=== PATIENT | male | born 1980 | race Caucasian/White ===

== ENCOUNTER 2021-03-11 17:30 | Outpatient (CLI) | payer SELFPAY ==
[2021-03-11 18:25] LABS: #Basophils 0.1 10x3/uL (0.0-0.2); #Eosinphils 0.1 10x3/uL (0.0-0.5); #Monocytes 1.2 10x3/uL (0.0-1.1); #Neutrophils 9.8 10x3/uL (1.5-8.4); %Basophils 0.5 % (0.0-2.0); %Lymphocytes 18.9 % (18.0-47.0); %Monocytes 8.8 % (0.0-10.0); %Neutrophils 70.2 % (40.0-75.0); Hemoglobin 15.3 g/dL (13.5-17.5); Mean Corpuscular HGB CONC 34.5 g/dL (32.0-36.0); Mean Corpuscular Hemoglobin 30.8 pg (27.0-33.0); Mean Corpuscular Volume 89.3 fl (81.2-95.1); Mean Platelet Volume 9.6 fl (7.4-10.4); Platelet Count 325 10x3/uL (150-450); RBC Distribution Width 12.2 % (11.5-14.5); Red Blood Cell (RBC) Count 4.97 10x6/uL (4.32-5.72); White Blood Cell (WBC) Count 13.9 10x3/uL (3.5-10.5)
[2021-03-12 17:09] LABS: SARS-CoV-2 PCR by NAA Not Detected (NotDetected)
== END 2021-03-11 17:31 | disposition home or self-care (01) ==
LOC: LABBT 17:30
PROVIDERS: ATTEND Orthopaedic Surgery
DX: Z01.812 Encounter for preprocedural laboratory examination (principal); S83.511A Sprain of anterior cruciate ligament of right knee, initial encounter; S83.241A Other tear of medial meniscus, current injury, right knee, initial encounter; Z20.822 Contact with and (suspected) exposure to COVID-19
CPT/HCPCS: 85025; U0003; U0005

== ENCOUNTER 2021-03-16 07:02 | Day surgery (SDC) | payer OTHER ==
[2021-03-15 09:17] VITALS: BMI 36.2
[2021-03-16] MEDS ORDERED: Midazolam HCl 2 mg/2 ml Vial ONE (07:43)
[2021-03-16] MEDS ORDERED: Fentanyl 100 MCG/2 ML VIAL ONE ×2 (07:43→09:45)
[2021-03-16] MEDS ORDERED: EPINEPHrine 1 MG/ML AMP ONE (09:28)
[2021-03-16] MEDS ORDERED: Bupivacaine 0.25% HCL 30 ML VIAL ONE (09:28)
[2021-03-16] MEDS ORDERED: Lidocaine 1% (PF) 30 ML VIAL ONE (09:28)
[2021-03-16] MEDS ORDERED: Fentanyl 100 MCG/2 ML VIAL SLOW IVP PRN (09:32)
[2021-03-16] MEDS ORDERED: traMADol HCl 50 MG TAB PO PRN ×2 (09:45)
[2021-03-16] MEDS ORDERED: Ondansetron PF 4 MG/2 ML Vial IVP PRN (09:45)
[2021-03-16] MEDS ORDERED: Ropivacaine 0.2% 550 ML 550 ML NERVE BLCK SCH (09:45)
[2021-03-16] MEDS ORDERED: HYDROcodone/Acetaminophen 5/325 mg Tablet PO PRN ×2 (09:45)
[2021-03-16] MEDS ORDERED: Zolpidem Tartrate 5 MG TAB PO PRN (09:45)
[2021-03-16] MEDS ORDERED: Promethazine HCl 25 MG/ML VIAL IM PRN (09:45)
[2021-03-16] MEDS ORDERED: Lidocaine 1% PF 5 ML VIAL ONE (09:50)
[2021-03-16] MEDS ORDERED: PROPOFOL 200 MG/20 ML VIAL ONE (09:50)
[2021-03-16] MEDS ORDERED: Ondansetron PF 4 MG/2 ML Vial ONE (09:50)
[2021-03-16] MEDS ORDERED: Ropivacaine 0.5% HCl/PF (150 MG/30 ML VIAL) ONE (09:50)
[2021-03-16] MEDS ORDERED: Ropivacaine 2% HCl/PF (20 MG/10 ML VIAL) ONE (09:50)
[2021-03-16] MEDS ORDERED: Ketorolac Tromethamine 30 MG/ML VIAL ONE (09:50)
[2021-03-16] MEDS ORDERED: diphenhydrAMINE 50 MG/ML VIAL ONE (09:50)
[2021-03-16] MEDS ORDERED: Dexamethasone 20 MG/5 ML VIAL ONE (09:50)
[2021-03-16] MEDS ORDERED: HYDROcodone/Acetaminophen 5/325 mg Tablet ONE (12:42)
== END 2021-03-16 14:20 | disposition home or self-care (01) ==
LOC: SDC 07:02
PROVIDERS: ATTEND Orthopaedic Surgery
PROC: 0MRN4JZ Replacement of Right Knee Bursa and Ligament with Synthetic Substitute, Percutaneous Endoscopic Approach (ICD-10-PCS; principal; 2021-03-16)
DX: S83.511A Sprain of anterior cruciate ligament of right knee, initial encounter (principal); I10 Essential (primary) hypertension; Z87.891 Personal history of nicotine dependence; X58.XXXA Exposure to other specified factors, initial encounter; Y93.39 Activity, other involving climbing, rappelling and jumping off
CPT/HCPCS: A4306; C1713; J0171; J0690; J1100; J1200; J1885; J2001; J2250; J2405; J2704; J2795; J3010; S0020